=== PATIENT | female | born 1955 | race Caucasian/White ===

== ENCOUNTER 2021-06-11 12:20 | Emergency (ER) | payer MEDICARE ==
[~2021-06-11] VITALS: Ht 175.3 cm; Wt 88.5 kg
[~2021-06-11 12:20] MED LIST: CARAFATE 1 GM TA1 G1 PO; CARDIZEM CD120 MG PO; CLEMASTINE FU2.68 MG PO; DICLOFENAC SODI75 MG PO; FLEXERIL PO; HYDROCHLOROTHIA25 M2 PO; HYDROCODONE-AP1 EAC6 PO; IBUPROFEN 800800 M1 PO; KLOR-CON 1010 MEQ PO; LIVER COMPLEX1 EACH PO; MUCINEX600 MG PO; NABUMETONE 750750 M1 PO; NEXIUM40 MG PO; NORCO 5-325 TA1 EACH PO; PROBIOTIC1 EAC1 PO; TUMS PO; VITAMIN D2000 UNIT PO; VITAMIN E400 UNIT PO; ZANTAC 150MG T150 MG PO; ZOCOR20 MG PO; ZOFRAN ODT4 MG PO; [UNRECOGNIZED DRUG - REMARK]
[2021-06-11] MEDS ORDERED: NEXIUM 40 MG CA40 M1 PO (12:39)
[2021-06-11] MEDS ORDERED: DILTIAZEM ER180 M2 PO (12:39)
[2021-06-11] MEDS ORDERED: CAMBIA50 MG PO (12:39)
[2021-06-11] MEDS ORDERED: ZOCOR 20 MG TAB20 M1 PO (12:40)
[2021-06-11] MEDS ORDERED: HYDROCHLOROTHIA25 M1 PO (12:40)
[2021-06-11] MEDS ORDERED: DICLOFENAC SODI75 MG PO (12:41)
[2021-06-11] MEDS ORDERED: BETAMETHASONE (12:41)
[2021-06-11] MEDS ORDERED: ZYRTEC10 M5 PO (12:42)
[2021-06-11] MEDS ORDERED: ELIDEL CREAM 1%30 G1 TOP (12:42)
[2021-06-11] MEDS ORDERED: B12 ACTIVE1000 MCG PO (12:43)
[2021-06-11] MEDS ORDERED: [UNRECOGNIZED DRUG - REMARK] PO (12:43)
[2021-06-11] MEDS ORDERED: CALCIUM500 MG PO (12:43)
[2021-06-11] MEDS ORDERED: MUCINEX1200 MG PO (12:43)
[2021-06-11] MEDS ORDERED: LIVER COMPLEX1 EACH PO (12:44)
[2021-06-11] MEDS ORDERED: VITAMIN E (12:44)
[2021-06-11] MEDS ORDERED: VITAMIN D (12:44)
[2021-06-11] MEDS ORDERED: PROBIOTIC1 EAC7 PO (12:44)
[2021-06-11 12:51] LABS: ABSOLUTE BASOPHILS 0.1 thou/uL (0.0-0.2); ABSOLUTE EOSINOPHILS 0.1 thou/uL (0.0-0.7); ABSOLUTE LYMPHOCYTES 2.1 thou/uL (0.8-5.3); ABSOLUTE MONOCYTES 0.4 thou/uL (0.0-1.2); EOSINOPHILS 1.1 %; HEMATOCRIT 42.6 % (37.0-47.0); HEMOGLOBIN 15.1 gm/dL (12.0-15.0); LYMPHOCYTES 24.1 %; MCH 30.6 pg (26.0-34.0); MCHC 35.5 g/dL (28.0-37.0); MCV 86.3 fL (80.0-100.0); MONOCYTES 4.7 %; MPV 8.6 fl. (7.2-11.1); NUCLEATED RBCS 0 /100WBC; PLATELET COUNT* 191 thou/uL (150-400); POLYS 69.1 %; RBC 4.94 mil/uL (4.20-5.00); RDW-CV 13.2 % (10.5-14.5); WBC 8.7 thou/uL (4.0-11.0)
[2021-06-11 12:57] LABS: CALCIUM 9.6 mg/dL (8.5-10.1); POTASSIUM 3.1 mmol/L (3.5-5.1)
[2021-06-11 13:02] LABS: ALBUMIN 4.4 g/dL (3.4-5.0); TOTAL BILIRUBIN 1.2 mg/dL (<0.1-1.0); TOTAL PROTEIN 7.4 g/dL (6.4-8.2)
[2021-06-11] MEDS ORDERED: HYDROCODON-ACE1 EAC7 PO ×2 (13:36→13:41)
[2021-06-11] MEDS ORDERED: ZOFRAN ODT4 MG DISSOLVE (13:36)
[2021-06-11] MEDS ORDERED: BENTYL 10 MG CA10 M1 PO (13:36)
[2021-06-11 13:46] VITALS: BP 123/54
--- NOTE | 2021-06-11 17:51 | EKG ---
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 : 1955 Requested By: Davi Liang Order Number: [id number] MD: Khai Mendes Measurements Intervals [place] Rate: 70 P: 50 SC: 214 QRS: -19 QRSD: 104 T: -14 QT: 452 QTc: 488 Interpretive Statements Sinus rhythm Borderline prolonged SC interval Inferior infarct, old Baseline wander in lead(s) II,III,aVR,aVL,aVF Compared to ECG 12/28/2015 08:55:20 Myocardial infarct finding now present Electronically Signed On 06-11-2021 17:50:58 CDT by Khai Mendes [email or web address] <ELECTRONICALLY SIGNED> By: Khai Mendes MD, FACC 06/11/21 1750 1253 1253 Khai Mendes MD, FAC /EPI
== END 2021-06-11 13:47 | disposition home or self-care (01) ==
LOC: M.ERS 12:20
PROVIDERS: Family Medicine
DX: R10.13 Epigastric pain (principal); R10.10 Upper abdominal pain, unspecified; Z90.49 Acquired absence of other specified parts of digestive tract; G43.909 Migraine, unspecified, not intractable, without status migrainosus; K21.9 Gastro-esophageal reflux disease without esophagitis; Z79.899 Other long term (current) drug therapy; Z88.0 Allergy status to penicillin; Z88.8 Allergy status to other drugs, medicaments and biological substances; Z88.2 Allergy status to sulfonamides

== ENCOUNTER 2021-11-28 13:21 | Emergency (ER) | payer MEDICARE ==
[~2021-11-28] VITALS: Ht 175.3 cm; Wt 84.0 kg
[~2021-11-28 13:21] MED LIST changes: +B12 ACTIVE1000 MCG PO; +BENTYL 10 MG CA10 M1 PO; +BETAMETHASONE; +CALCIUM500 MG PO; +CAMBIA50 MG PO; +DILTIAZEM ER180 M2 PO; +ELIDEL CREAM 1%30 G1 TOP; +HYDROCHLOROTHIA25 M1 PO; +HYDROCODON-ACE1 EAC7 PO; +MUCINEX1200 MG PO; +NEXIUM 40 MG CA40 M1 PO; +PROBIOTIC1 EAC7 PO; +VITAMIN D; +VITAMIN E; +ZOCOR 20 MG TAB20 M1 PO; +ZOFRAN ODT4 MG DISSOLVE; +ZYRTEC10 M5 PO; +[UNRECOGNIZED DRUG - REMARK] PO
[2021-11-28] MEDS ORDERED: CHLORTHALIDONE25 MG PO (13:43)
[2021-11-28 13:47] LABS: ABSOLUTE BASOPHILS 0.1 thou/uL (0.0-0.2); ABSOLUTE EOSINOPHILS 0.1 thou/uL (0.0-0.7); ABSOLUTE LYMPHOCYTES 3.4 thou/uL (0.8-5.3); ABSOLUTE MONOCYTES 0.4 thou/uL (0.0-1.2); ABSOLUTE NEUTROPHILS 3.6 thou/uL (1.6-8.1); BASOPHILS 0.8 %; EOSINOPHILS 1.7 %; HEMATOCRIT 44.8 % (37.0-47.0); HEMOGLOBIN 15.6 gm/dL (12.0-15.0); LYMPHOCYTES 45.1 %; MCH 30.9 pg (26.0-34.0); MCHC 34.8 g/dL (28.0-37.0); MCV 88.8 fL (80.0-100.0); MONOCYTES 4.9 %; MPV 8.3 fl. (7.2-11.1); NUCLEATED RBCS 0 /100WBC; PLATELET COUNT* 211 thou/uL (150-400); POLYS 47.5 %; RBC 5.05 mil/uL (4.20-5.00); RDW-CV 13.1 % (10.5-14.5); WBC 7.6 thou/uL (4.0-11.0)
[2021-11-28 13:57] LABS: CALCIUM 9.3 mg/dL (8.5-10.1)
[2021-11-28 14:04] LABS: ALBUMIN 4.3 g/dL (3.4-5.0); MAGNESIUM 2.1 mg/dL (1.8-2.4); TOTAL BILIRUBIN 0.8 mg/dL (<0.1-1.0); TOTAL PROTEIN 7.1 g/dL (6.4-8.2)
--- NOTE | 2021-11-28 14:32 | EKG ---
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 : 1955 Requested By: Zoë Mcdonnell Order Number: [id number] MD: Dar Carroll Measurements Intervals [place] Rate: 74 P: 52 NC: 136 QRS: 8 QRSD: 102 T: 24 QT: 451 QTc: 501 Interpretive Statements Sinus rhythm Multiple premature complexes, vent & supraven Prolonged QT interval Compared to ECG 06/11/2021 12:53:54 Prolonged QT interval now present Myocardial infarct finding no longer present Electronically Signed On 11-28-2021 14:32:30 [employer] by Dar Carroll [email or web address] <ELECTRONICALLY SIGNED> By: Terrance Carroll MD, [facility] 11/28/21 1432 1334 1334 Terrance Carroll MD, [facility] /EPI
[2021-11-28 14:43] LABS: URINE BILIRUBIN NEGATIVE (Negative); URINE BLOOD NEGATIVE (Negative); URINE CLARITY CLEAR; URINE COLOR YELLOW; URINE GLUCOSE-RANDOM NEGATIVE (Negative); URINE KETONES NEGATIVE (Negative); URINE LEUKOCYTES-REFLEX NEGATIVE (Negative); URINE NITRITE-REFLEX NEGATIVE (Negative); URINE PROTEIN NEGATIVE (Negative); URINE SPECIFIC GRAVITY 1.015 (1.005-1.030); URINE UROBILINOGEN 0.2 E.U./dl (0.2-1.0)
[2021-11-28 15:05] VITALS: BP 150/82
== END 2021-11-28 15:05 | disposition home or self-care (01) ==
LOC: M.ERS 13:21
PROVIDERS: Student in an Organized Health Care Education/Training Program
DX: R10.13 Epigastric pain (principal); G43.909 Migraine, unspecified, not intractable, without status migrainosus; K21.9 Gastro-esophageal reflux disease without esophagitis; Z90.49 Acquired absence of other specified parts of digestive tract; Z79.891 Long term (current) use of opiate analgesic; Z79.899 Other long term (current) drug therapy; Z79.1 Long term (current) use of non-steroidal anti-inflammatories (NSAID); Z88.0 Allergy status to penicillin; Z88.2 Allergy status to sulfonamides; Z88.5 Allergy status to narcotic agent; Z88.6 Allergy status to analgesic agent; Z88.8 Allergy status to other drugs, medicaments and biological substances